=== PATIENT | male | born 1975 | race Caucasian/White ===

== ENCOUNTER 2017-10-11 19:00 | Emergency (ER) | payer BC ==
[~2017-10-11] VITALS: Ht 167.6 cm; Wt 99.3 kg
[2017-10-11 20:17] LABS: HEMATOCRIT 45.7 % (38.0-50.0); HEMOGLOBIN 16.5 G/DL (12.5-16.6); MCH 29.5 PG (29.0-34.0); MCHC 36.1 G/DL (30.0-36.0); MCV 81.6 FL (86-99); PLATELET COUNT 291 K/uL (156-360); RBC DIS.WIDTH-SD 35.3 % (39-53); WHITE BLOOD COUNT 9.9 K/uL (4.1-10.2)
[2017-10-11 20:30] LABS: CHLORIDE 101 mEq/L (99-109); POTASSIUM 2.9 mEq/L (3.7-5.4); SODIUM 139 mEq/L (136-147)
[2017-10-11 20:31] LABS: GLUCOSE 95 mg/dL (70-99)
[2017-10-11 20:36] LABS: UREA NITROGEN (BUN) 16 mg/dL (9-23)
[2017-10-11 20:39] LABS: GFR ESTIMATE (CALCULATED) > 59 mL/min/ (58.99-99999)
[2017-10-11 20:40] LABS: TROP-I INTERPRETATION NEGATIVE; TROPONIN-I 0.02 ng/mL (0.0-0.30)
[2017-10-11 22:24] LABS: D-DIMER ELISA < 150.00 ng/mLDDU (<230)
[2017-10-12 00:21] VITALS: BP 138/74
== END 2017-10-12 00:22 | disposition home or self-care (01) ==
LOC: EME 19:00
DX: R06.02 Shortness of breath (principal); R07.9 Chest pain, unspecified; E87.6 Hypokalemia; I49.8 Other specified cardiac arrhythmias; I10 Essential (primary) hypertension; E78.00 Pure hypercholesterolemia, unspecified
CPT/HCPCS: 71046; 80048; 84484; 85027; 85379; 93005; 99281; 99283